=== PATIENT | female | born 1990 | race African-American/Black ===

== ENCOUNTER 2020-05-07 09:38 | Emergency (ER) | payer OTHER ==
[2020-05-07 09:54] VITALS: BP 133/90; PULSE 66; BMI 33.0
--- NOTE | 2020-05-07 10:26 | PDOC ---
History of Present Illness - General Chief Complaint: Pain, Acute Stated Complaint: ABD PAIN Time Seen by Provider: 05/07/20 10:03 History Source: Patient Exam Limitations: No Limitations - History of Present Illness Travel History: No Initial Comments: 05/07/20 10:22 29-year-old female presents to the emergency room with complaints of left suprapubic pain for the past 3 days worsened with movement now with spotting patient states last menstrual cycle was April 17 and has no urinary complaints. Patient states does have history of uterine fibroids but had them removed years ago. Patient denies fever, chills, nausea, vomiting, abdominal distention or diarrhea. Patient was denies vaginal discharge or dyspareunia. Timing/Duration: reports: intermittent Quality: reports: mild, cramping Abdominal Pain Onset Location: reports: suprapubic Pain Radiation: reports: no radiation Activities at Onset: reports: exertion Aggravating Factors: improves with: Movement Alleviating Factors: improves with: Rest Past History - Travel History Traveled outside of the country in the last 30 days: No Close contact w/someone who was outside of country & ill: No - Medical History Allergies/Adverse Reactions: Allergies Allergy/AdvReac Type Severity Reaction Status Date / Time No Known Allergies Allergy Verified 05/07/20 09:59 Home Medications: Ambulatory Orders NK [No Known Home Medication] 05/07/20 COPD: No - Reproductive History Is Patient Now?: No - Psycho-Social/Smoking History Patient Lives Alone: No Smoking History: Never smoked - Substance Abuse Hx (Audit-C & DAST Scrn) How often the patient has a drink containing alcohol: Monthly or less Score: In Men: 4 or > Positive; In Women: 3 or > Positive: 1 Screen Result (Pos requires Nsg. Audit-10AR): Negative In the last yr the pt used illegal drug/Rx for NonMed reason: No Score: Yes response is considered Positive: 0 Screen Result (Positive result requires Nsg. DAST-10): Negative Review of Systems - Review of Systems Able to Perform ROS?: Yes Constitutional: No: Symptoms Reported HEENTM: No: Symptoms Reported Respiratory: No: Symptoms reported Cardiac (ROS): No: Symptoms Reported ABD/GI: Yes: Abdominal cramping : No: Symptoms Reported Musculoskeletal: No: Symptoms Reported Integumentary: No: Symptoms Reported Neurological: No: Symptoms reported Endocrine: No: Symptoms Reported *Physical Exam - Vital Signs Last Vital Signs Temp Pulse Resp BP Pulse Ox 66 133/90 98 05/07/20 09:51 05/07/20 09:51 05/07/20 09:51 - Physical Exam General Appearance: Yes: Nourished, Appropriately Dressed. No: Severe Distress HEENT: negative: Pale Conjunctivae Neck: positive: Supple Respiratory/Chest: positive: Lungs Clear, Normal Breath Sounds. negative: Respiratory Distress, Accessory Muscle Use Cardiovascular: positive: Regular Rhythm, Regular Rate. negative: Murmur Gastrointestinal/Abdominal: positive: Normal Bowel Sounds, Soft, Tenderness (Left suprapubic). negative: Distended, Guarding Musculoskeletal: negative: CVA Tenderness Extremity: positive: Normal Inspection Integumentary: positive: Normal Color, Warm, Moist Neurologic: positive: Motor Strength 5/5 (ambulatory) Medical Decision Making - Medical Decision Making 05/07/20 10:27 Chief complaint: Patient with left suprapubic pain along with spotting for the past 2 days without other complaints . , Current dysuria, or concern for . PAtient has history of yet uterine fibroids but denies history of ovarian cyst Exam: Patient with left suprapubic tenderness on exam. Vital signs stable. Plan: Urine and will consider type of ultrasound once urine is reviewed resulted. 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 Endometrium measures 1.3 cm in dimension. Right ovary noted with a 1.5 complex right ovarian cyst probably hemorrhagic with small amount of free fluid surrounding t he right adnexa. The left ovary within normal limits with normal vascular flow bilaterally. Patient will be discharged home with recommendations to follow-up with CLIENT SUPPORT ANALYST take Motrin or Tylenol for discomfort and try heating pad to affected area. 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 Endometrium measures 1.3 cm in dimension. Right ovary noted with a 1.5 complex right ovarian cyst probably hemorrhagic with small amount of free fluid surrounding the right adnexa. The left ovary within normal limits with normal vascular flow bilaterally. Patient will be discharged home with recommendations to follow-up with CLIENT SUPPORT ANALYST take Motrin or Tylenol for discomfort and try heating pad to affected area. Discharge - Discharge Information Problems reviewed: Yes Clinical Impression/Diagnosis: Ovarian cyst, Fibroid Condition: Good Disposition: HOME - Follow up/Referral Referrals: Allan Blue MD [Primary Care Provider] - - Patient Discharge Instructions Patient Printed Discharge Instructions: DI for Ovarian Cyst, DI for Uterine Fibroids Additional Instructions: At this time the ultrasound noted a small fibroid along with a right ovarian cyst which should be followed up by your CLIENT SUPPORT ANALYST. You may take Tylenol Motrin for discomfort and apply heating pad to affected area. If your symptoms worsen including severe abdominal cramping along with heavy vaginal bleeding please return to the ER immediately - Post Discharge Activity
[2020-05-07 11:07] LABS: HCG,QUALITATIVE URINE Negative
[2020-05-07 11:16] LABS: URINE APPEARANCE CLEAR; URINE BILIRUBIN NEGATIVE (NEGATIVE); URINE COLOR YELLOW; URINE GLUCOSE (UA) NEGATIVE (NEGATIVE); URINE KETONE NEGATIVE (NEGATIVE); URINE LEUK ESTERASE NEGATIVE (NEGATIVE); URINE NITRITE NEGATIVE (NEGATIVE); URINE PROTEIN NEGATIVE (NEGATIVE); URINE UROBILINOGEN 0.2 mg/dL (0.2-1.0)
== END 2020-05-07 13:15 | disposition home or self-care (01) ==
LOC: JER 09:38
DX: N83.209 Unspecified ovarian cyst, unspecified side (principal)
CPT/HCPCS: 76830-TC; 81003; 84703; 99284-25

== ENCOUNTER 2023-01-16 07:05 | Emergency (ER) | payer OTHER ==
[2023-01-16 07:19] VITALS: RESP 18; BMI 34.7
[2023-01-16 08:21] VITALS: PULSE 69; TEMP 98.4
[2023-01-16 09:13] VITALS: BP 147/84
== END 2023-01-16 09:15 | disposition home or self-care (01) ==
LOC: JER 07:05
DX: J00 Acute nasopharyngitis [common cold] (principal); R09.81 Nasal congestion; R05.9 Cough, unspecified; R07.0 Pain in throat; R09.89 Other specified symptoms and signs involving the circulatory and respiratory systems; Z20.822 Contact with and (suspected) exposure to COVID-19
CPT/HCPCS: 0241U-QW; 99285-25

== ENCOUNTER 2023-09-10 20:36 | Emergency (ER) | payer OTHER ==
[2023-09-10 21:06] VITALS: BP 135/86; PULSE 94; RESP 18; TEMP 99.3; BMI 34.4
== END 2023-09-10 22:31 | disposition home or self-care (01) ==
LOC: JER 20:36 → JERFT 20:36
DX: S93.402A Sprain of unspecified ligament of left ankle, initial encounter (principal); X50.1XXA Overexertion from prolonged static or awkward postures, initial encounter; Y93.01 Activity, walking, marching and hiking
CPT/HCPCS: 73610-TC-LT-FY; 73630-TC-LT; 99283-25